=== PATIENT | male | born 1950 | race Caucasian/White ===

== ENCOUNTER 2024-07-23 13:08 | Emergency (ER) | payer MEDICARE, OTHER, SELFPAY ==
--- NOTE | 2024-07-23 13:56 | ED.GENMED ---
History of Present Illness
<Anna Roger PA-C - Last Filed: 07/23/24 20:26>
General
Chief Complaint: Skin Problem
Source: patient
Exam Limitations: none
Time Seen by Provider: 07/23/24 13:21
Nursing documentation reviewed up to this point in time: agreed with
History of Present Illness
History of Present Illness:
Patient is a 74 year old male with hx HTN, HLD, DM presenting to the emergency department for evaluation of rash. Patient reports a red, itchy rash on his bilateral lower legs and forearms over the past week. Rash initially appeared while he was on
vacation in [place]. He did apply OTC hydrocortisone to affected areas to ease itch. At this point he feels symptoms have largely improved, although he is still noticing a few new, itchy bumps on his arms. Patient denies any pain or burning
sensation associated with rash. There was no blister formation of drainage from bumps. Patient states that he overall feels well - without any fever, chills, weakness, or other systemic symtpoms.
Patient denies any known bug bites. He denies any swimming while on vacation or hiking. He does, however, note that one day he did spend some time sitting in the sand while he was wearing shorts, tshirt, and sneakers. He feels that something bit him
while he was in sand.
Review of Systems
<Anan Rogre PA-C - Last Filed: 07/23/24 20:26>
Review of Systems
Allergies reviewed?: Yes
All Other Systems: ROS reviewed and negative except as documented in HPI and ROS
Phy Exam
<Anna Roger PA-C - Last Filed: 07/23/24 20:26>
Physical Exam
Physical Exam:
Vitals: Hypertensive, otherwise vital signs stable. Afebrile
General: Patient is well appearing, no acute distress
Skin: Diffuse erythematous papules and purpuric lesions of bilateral lower extremities from ankles to mid thigh and bilateral upper extremities from hand to upper arm. Spares palms and soles. No lesions on trunk. No lesions of oral mucosa
Head: Normocephalic, atraumatic
Eyes: Sclera nonicteric. EOMs intact. No nystagmus.
Throat: Protecting airway
Neck: Normal ROM, no cervical spine tenderness, no meningismus
Cardiac: Regular rate and rhythm, no murmurs.
Pulm: Normal respiratory effort, no wheezes, rales, rhonchi heard on exam.
Abdomen: No abdominal tenderness.
Extremities: Diffuse erythematous papules of bilateral upper and lower extremities described above. No streaking
Neuro: AAOx3. Grossly intact
Psychiatric: Normal affect.
Course
<Anna Roger PA-C - Last Filed: 07/23/24 20:26>
Orders/Labs/Results
Orders:
Orders
07/23/24 14:05
Prednisone [Deltasone] 50 mg PO NOW STA
Vital Signs
Initial and Last Documented VS:
Initial Vital Signs
Temp Pulse Resp Pulse Ox
98.1 F 95 16 98
07/23/24 13:09 07/23/24 13:09 07/23/24 13:09 07/23/24 13:09
Last Documented Vital Signs
Temp Pulse Resp BP Pulse Ox
98.1 F 76 16 159/65 98
07/23/24 13:09 07/23/24 14:24 07/23/24 13:09 07/23/24 14:24 07/23/24 14:24
<Román Quintero DO - Last Filed: 07/23/24 14:10>
Orders/Labs/Results
Orders:
Orders
07/23/24 14:05
Prednisone [Deltasone] 50 mg PO NOW STA
Vital Signs
Initial and Last Documented VS:
Initial Vital Signs
Temp Pulse Resp Pulse Ox
98.1 F 95 16 98
07/23/24 13:09 07/23/24 13:09 07/23/24 13:09 07/23/24 13:09
Last Documented Vital Signs
Temp Pulse Resp BP Pulse Ox
98.1 F 76 16 159/65 98
07/23/24 13:09 07/23/24 14:24 07/23/24 13:09 07/23/24 14:24 07/23/24 14:24
<Anna Roger PA-C - Last Filed: 07/23/24 20:26>
MDM/Problems Addressed
Differential Diagnosis Includes:
Not limited to: contact dermatitis, scabies, chiggers, insect bites, flea bites, vasculitis, etc
MDM/Problems Addressed:
74-year-old male presenting with pruritic rash of bilateral upper and lower extremities. Did recently travel to [place] where he feels he was bit by sand fleas. No systemic symptoms. Patient mildly hypertensive, otherwise vital signs stable. He
is afebrile. Physical exam as above. Patient very well-appearing, conversational and nontoxic. There are diffuse erythematous papules and purpuric lesions of bilateral lower extremities and upper extremities. There is no involvement of oral
mucosa, palms, or soles. No lesions on trunk. Purpuric lesions on bilateral lower extremities do appear to be more of a postinflammatory hyperpigmentation. There are a few scattered erythematous papules on upper extremities that appear new.
Given distribution of rash�do suspect some sort of contact dermatitis versus bites. It is possible that he was bitten by sand fleas while on the beach. He does state similar to prior exposure to sand fleas while he was in [employer]. Chiggers would
be another potential possibility. No evidence of superimposed bacterial infection. Do not suspect vasculitis. No evidence of systemic involvement. Symptoms much improved although will give patient dose of oral steroids and start a Medrol
Dosepak. Will topical steroids to help with itch. Patient will follow close with primary care. Return precautions discussed. Patient seen with attending physician
Chronic conditions affecting care:
HTN
Acute Exacerbation and/or Progression of Chronic Illness:
Acutely hypertensive
<Anna Roger PA-C - Last Filed: 07/23/24 20:26>
*Pulse Oximetry
Patient hypoxic: no
*EKG
Interpreted by ED Provider?: NA
*Alarm Investigator Interpretation
Rate: Alarm Investigator- N/A
*Critical Care Note
Total Time (30-74mins, 75-104mins- exclusive of procedures): Not Applicable
ED Attending Note
<Anna Roger PA-C - Last Filed: 07/23/24 20:26>
-
Portions of this chart may have been created with voice recognition software.� Occasional wrong word or��sound alike� substitutions may have occurred due to the inherent limitations of voice recognition software.
<Román Quintero DO - Last Filed: 07/23/24 14:10>
ED Attending Note
Patient seen and examined by attending physician: Yes
I performed the substantive portion of visit, reviewed & personally made and approve the management plan that is documented in note by myself or TAVON.: Yes
ED Attending Note:
74 male seen with PA examined independently patches of pruritic spots on his arms and legs was at the beach a week ago in [place] states was bitten by something, reminds him of when he had sand fleas was in boot camp in the [facility], could be
triggers will give p.o. and topical steroids antihistamines
Discharge Plan
Departure
Patient Disposition: Home (Routine Discharge)
Date of Disposition: 07/23/24
Time of Disposition: 14:20
Patient with high blood pressure during this ER visit?: No
Condition: Good
Covid-19: Not Applicable
Discharge Problem:
Rash
Instructions: Skin Rash ED, Insect Bites and Stings ED, BLOOD PRESSURE
Prescriptions:
New
methylprednisolone [Medrol ([facility])] 4 mg tablets,dose pack
See Rx Instructions .ROUTE .COMPLEX Qty: 21 0RF
Rx Instructions:
for 6 days
hydrocortisone 2.5 % cream
1 applic topical BID PRN (Reason: itching) Qty: 28 0RF
Rx Instructions:
to affected areas
Referrals:
NONE,* [Family Provider] - Follow up in 5-7 days
Activity Restrictions/Additional Instructions:
RETURN TO THE EMERGENCY DEPARTMENT WITH ANY FEVERS, CHILLS, SHORTNESS OF BREATH, INTRACTABLE PAIN/ITCH, WORSENING IN RASH, OR ANY OTHER CONCERNS
-As discussed that you were given a dose of steroid in the emergency department today. You should continue steroid course starting tomorrow and take as directed. A prescription for a topical steroid has been sent to your pharmacy which you can use
twice a day as needed to affected itchy areas. You can try [id number] calamine lotion as well for itchiness.
-You should wash all of your sheets, towels, close in hot water.
-Follow-up with your primary care/dermatology for further evaluation/management
Monitor your symptoms closely and return to the emergency department any acute worsening/new symptoms or any other concerns
Interventions
Interventions:
*Risk Screen - Suicide Last Done: 07/23/24 13:09
*General Assessment Last Done: 07/23/24 14:23
*Neglect/Abuse Screening Last Done: 07/23/24 13:09
ED- Fall Risk Assessment Last Done: 07/23/24 14:23
*ED COVID-19 Vaccine History Last Done: 07/23/24 14:23
*Nursing Disposition Last Done: 07/23/24 14:23
ED-Skin Assessment Last Done: 07/23/24 13:08
Discharge Date and Time
Discharge Date/Time: 07/23/24 14:23
Print Language: CAPE [place]DE[place]
[2024-07-23] MEDS: DELTASONE 50 MG PO (14:14)
[2024-07-23 14:24] VITALS: BP 159/65
== END 2024-07-23 14:23 | disposition home or self-care (01) ==
LOC: EMR 13:08
PROVIDERS: EMERGENCY PHYSICIAN Emergency Medicine
DX: R21 Rash and other nonspecific skin eruption (principal); I10 Essential (primary) hypertension; E78.00 Pure hypercholesterolemia, unspecified; E11.9 Type 2 diabetes mellitus without complications
CPT/HCPCS: 99283